=== PATIENT | female | born 1990 | race Caucasian/White ===

== ENCOUNTER 2021-06-16 07:38 | Emergency (ER) | payer BC ==
[~2021-06-16] VITALS: Ht 157.5 cm; Wt 92.1 kg
[2021-06-16 07:41] VITALS: BP 134/75
--- NOTE | 2021-06-16 07:47 | NUR ---
PATIENT SENT TO LOBBY
[2021-06-16 08:19] LABS: BASOPHILS # (AUTO) 0.1 K/uL (0.00-0.22); BASOPHILS % (AUTO) 0.7 % (0.0-2.0); EOSINOPHILS # (AUTO) 0.1 K/uL (0-0.4); EOSINOPHILS % (AUTO) 2.1 % (0.0-4.0); HEMATOCRIT 37.4 % (36-48); HEMOGLOBIN 12.6 g/dL (12.0-16.0); LYMPHOCYTES # (AUTO) 2.2 K/uL (2.5-16.5); LYMPHOCYTES % (AUTO) 31.3 % (20.5-51.1); MEAN CORPUSCULAR HEMOGLOBIN 29 pg (27-31); MEAN CORPUSCULAR HGB CONC 34 g/dL (33-37); MEAN CORPUSCULAR VOLUME 85.1 fL (80-94); MONOCYTES # (AUTO) 0.5 K/uL (0.8-1.0); MONOCYTES % (AUTO) 7.3 % (1.7-9.3); NEUTROPHILS # (AUTO) 4.2 K/uL (1.8-7.7); NEUTROPHILS % (AUTO) 58.6 % (42.2-75.2); PLATELET COUNT (AUTO) 326 K/uL (140-450); RED BLOOD CELL COUNT(AUTO) 4.39 MIL/uL (4.20-5.40); RED CELL DISTRIBUTION WIDTH 13.4 % (11.6-13.7); WHITE BLOOD COUNT (AUTO) 7.1 K/uL (4.8-10.8)
[2021-06-16 08:24] LABS: BILIRUBIN,URINE NEGATIVE (NEGATIVE); BLOOD, URINE 2+ (NEGATIVE); COLOR,URINE YELLOW (YELLOW); LEUKOCYTE ESTERASE ,URINE NEGATIVE (NEGATIVE); NITRITE, URINE NEGATIVE (NEGATIVE); UGLUCOSE NEGATIVE (NEGATIVE)
[2021-06-16 08:25] LABS: APPEARANCE,URINE CLOUDY (CLEAR)
[2021-06-16 08:34] LABS: RBC,URINE 0-5 /HPF (0-5); WBC,URINE 0-5 /HPF (0-5)
[2021-06-16 08:35] LABS: URINE AMORPHOUS URATE 1+ /HPF (None Seen)
--- NOTE | 2021-06-16 08:35 | NUR ---
PT TAKEN TO ER BED 5, GIVEN GOWN AND BLANKET
[2021-06-16 08:36] LABS: ALBUMIN 3.4 g/dL (3.4-5.0); ANION GAP 15.1 (8-16); CARBON DIOXIDE 25.7 mmol/L (21-32); CREATININE 0.7 mg/dL (0.6-1.3); POTASSIUM 3.8 mmol/L (3.5-5.1); TOTAL BILIRUBIN 0.4 mg/dL (0.0-1.0)
--- NOTE | 2021-06-16 08:48 | NUR ---
Dr. Mora at bedside evaluating patient.
--- NOTE | 2021-06-16 09:15 | NUR ---
30 y/o F BIB self c/o vaginal bleeding since this morning. Patient A&Ox4, ambulatory, states she had 5 positive tests on 06/09/21. Pt states she woke up with light spotting that is "mucus-like." Reports low back pain and abdominal pain that has since subsided. 0/10 pain at this time. Denies nausea, vomiting, diarrhea, constipation, chest pain, SOB, dysuria, fever, chills. A1. Bed locked in lowest position, side rails x 1. MEDHX: DENIES ALLERGIES: DENIES
--- NOTE | 2021-06-16 09:15 | NUR ---
Note undone in EDM - 06/16/21 at 0942 by [email or web address] 30 y/o F BIB self c/o vaginal bleeding since this morning. Patient A&Ox4, ambulatory, states she had 5 positive tests on 06/09/21. Pt states she woke up with light spotting with "mucus-like clot." Reports low back pain and abdominal pain that has since subsided. 0/10 pain at this time. Denies nausea, vomiting, diarrhea, constipation, chest pain, SOB, dysuria, fever, chills. A1. Bed locked in lowest position, side rails x 1. MEDHX: DENIES ALLERGIES: DENIES
--- NOTE | 2021-06-16 09:38 | NUR ---
Boyfriend at bedside
[2021-06-16 09:55] VITALS: BP 125/70
[2021-06-16] MEDS ORDERED: PNV91TAB8 PO (10:04)
--- NOTE | 2021-06-16 10:15 | NUR ---
Patient discharged with v/s stable. Written and verbal after care instructions given and explained. Patient alert, oriented and verbalized understanding of instructions. Ambulatory with steady gait. All questions addressed prior to discharge. ID band removed. Patient advised to follow up with PMD. Rx of Tablet given. Patient educated on indication of medication including possible reaction and side effects. Opportunity to ask questions provided and answered.
== END 2021-06-16 10:15 | disposition home or self-care (01) ==
LOC: MED 07:38
DX: O20.0 Threatened abortion (principal); Z79.899 Other long term (current) drug therapy; Z3A.01 Less than 8 weeks gestation of pregnancy
CPT/HCPCS: 36415; 76801; 80053; 81001; 81025; 85025; 86886; 86900; 86901; 99284; Q0092

== ENCOUNTER 2021-06-23 14:02 | Emergency (ER) | payer BC ==
[~2021-06-23] VITALS: Ht 160 cm; Wt 91.3 kg
[~2021-06-23 14:02] MED LIST: PNV91TAB8 PO
[2021-06-23 14:30] VITALS: BP 127/82
--- NOTE | 2021-06-23 14:35 | NUR ---
Shiela rincon in [facility] - 06/23/21 at 1437 by [email or web address] PURVI.
--- NOTE | 2021-06-23 15:08 | NUR ---
ROUTER SETTER WITH PT FOR BLOOD DRAWS.
[2021-06-23 15:30] LABS: BASOPHILS % (AUTO) 0.3 % (0.0-2.0); EOSINOPHILS # (AUTO) 0.2 K/uL (0-0.4); EOSINOPHILS % (AUTO) 1.6 % (0.0-4.0); HEMATOCRIT 37.3 % (36-48); HEMOGLOBIN 12.7 g/dL (12.0-16.0); LYMPHOCYTES # (AUTO) 2.4 K/uL (2.5-16.5); LYMPHOCYTES % (AUTO) 24.9 % (20.5-51.1); MEAN CORPUSCULAR HEMOGLOBIN 29 pg (27-31); MEAN CORPUSCULAR HGB CONC 34 g/dL (33-37); MEAN CORPUSCULAR VOLUME 84.7 fL (80-94); MONOCYTES # (AUTO) 0.8 K/uL (0.8-1.0); MONOCYTES % (AUTO) 8.6 % (1.7-9.3); NEUTROPHILS # (AUTO) 6.3 K/uL (1.8-7.7); NEUTROPHILS % (AUTO) 64.6 % (42.2-75.2); PLATELET COUNT (AUTO) 326 K/uL (140-450); RED CELL DISTRIBUTION WIDTH 13.7 % (11.6-13.7); WHITE BLOOD COUNT (AUTO) 9.8 K/uL (4.8-10.8)
--- NOTE | 2021-06-23 15:46 | NUR ---
PT RETURNED TO CHAIR A FROM XRAY VIA W/C Addendum: 06/23/21 at 1546 by [email or web address] PT TAKEN TO C
--- NOTE | 2021-06-23 15:47 | NUR ---
PT PROVIDED WITH URINE CUP AND CUP OF WATER
[2021-06-23] MEDS ORDERED: ACET-2619 PO (16:38)
--- NOTE | 2021-06-23 16:42 | NUR ---
NO NURSING INTERVENTIONS GIVEN; NO NEED FOR COMPLETE ASSESSMENT
[2021-06-23 20:29] LABS: BILIRUBIN,URINE NEGATIVE (NEGATIVE); BLOOD, URINE 3+ (NEGATIVE); COLOR,URINE YELLOW (YELLOW); LEUKOCYTE ESTERASE ,URINE NEGATIVE (NEGATIVE); NITRITE, URINE NEGATIVE (NEGATIVE); UGLUCOSE NEGATIVE (NEGATIVE)
[2021-06-23 20:30] LABS: APPEARANCE,URINE CLEAR (CLEAR)
[2021-06-23 20:43] LABS: RBC,URINE TOO NUMEROUS TO COUN /HPF (0-5); WBC,URINE 0-5 /HPF (0-5)
== END 2021-06-23 16:42 | disposition home or self-care (01) ==
LOC: MED 14:02
DX: O03.9 Complete or unspecified spontaneous abortion without complication (principal); Z79.899 Other long term (current) drug therapy
CPT/HCPCS: 36415; 76815; 81001; 84702; 85025; 86900; 86901; 99284; Q0092

== ENCOUNTER 2021-07-08 15:43 | Emergency (ER) | payer BC ==
[~2021-07-08] VITALS: Ht 160 cm; Wt 91.6 kg
[~2021-07-08 15:43] MED LIST changes: +ACET-2619 PO
[2021-07-08 16:41] VITALS: BP 136/89
[2021-07-08 17:11] LABS: BASOPHILS % (AUTO) 0.2 % (0.0-2.0); HEMATOCRIT 38.2 % (36-48); HEMOGLOBIN 12.9 g/dL (12.0-16.0); LYMPHOCYTES # (AUTO) 1.1 K/uL (2.5-16.5); LYMPHOCYTES % (AUTO) 13.6 % (20.5-51.1); MEAN CORPUSCULAR HEMOGLOBIN 29 pg (27-31); MEAN CORPUSCULAR HGB CONC 34 g/dL (33-37); MEAN CORPUSCULAR VOLUME 84.3 fL (80-94); MONOCYTES # (AUTO) 0.5 K/uL (0.8-1.0); MONOCYTES % (AUTO) 6.4 % (1.7-9.3); NEUTROPHILS # (AUTO) 6.5 K/uL (1.8-7.7); NEUTROPHILS % (AUTO) 79.8 % (42.2-75.2); PLATELET COUNT (AUTO) 349 K/uL (140-450); RED BLOOD CELL COUNT(AUTO) 4.53 MIL/uL (4.20-5.40); RED CELL DISTRIBUTION WIDTH 13.4 % (11.6-13.7); WHITE BLOOD COUNT (AUTO) 8.1 K/uL (4.8-10.8)
[2021-07-08 17:27] LABS: ALBUMIN 3.7 g/dL (3.4-5.0); ANION GAP 14.8 (8-16); CARBON DIOXIDE 24.7 mmol/L (21-32); CREATININE 0.6 mg/dL (0.6-1.3); POTASSIUM 3.5 mmol/L (3.5-5.1); TOTAL BILIRUBIN 0.5 mg/dL (0.0-1.0)
[2021-07-08] MEDS ORDERED: NAPR-54 PO (18:46)
[2021-07-08] MEDS ORDERED: MEDR10TA PO (18:46)
[2021-07-08 19:30] VITALS: BP 136/89
--- NOTE | 2021-07-08 19:30 | NUR ---
Patient left without d/c paperwork. Patient discharged with v/s stable. Ambulatory with steady gait. All questions addressed prior to discharge. ID band removed. Patient advised to follow up with PMD. Rx of PROVERA AND NAPROSYN given. Patient educated on indication of medication including possible reaction and side effects. Opportunity to ask questions provided and answered.
== END 2021-07-08 19:30 | disposition home or self-care (01) ==
LOC: MED 15:43
DX: N93.9 Abnormal uterine and vaginal bleeding, unspecified (principal); Z79.899 Other long term (current) drug therapy
CPT/HCPCS: 36415; 76856; 80053; 81002; 81025; 84702; 85025; 99284

== ENCOUNTER 2023-04-27 12:26 | Emergency (ER) | payer SELFPAY ==
[~2023-04-27] VITALS: Ht 157.5 cm; Wt 90.7 kg
[~2023-04-27 12:26] MED LIST changes: +MEDR10TA PO; +NAPR-54 PO
[2023-04-27 12:45] VITALS: BP 134/101; PULSE 67; RESP 18; TEMP 97.5; O2SAT 96
[2023-04-27] MEDS ORDERED: TETRACAINE HCL/PF 0.5% OPTH 4 ML BTL OP ONE (14:45)
[2023-04-27] MEDS ORDERED: FLUORESCEIN OPTH STRIP 1 MG OP ONE (14:45)
[2023-04-27] MEDS ORDERED: CYCL-711 PO (16:00)
[2023-04-27] MEDS ORDERED: ACET-2619 PO (16:00)
[2023-04-27] MEDS ORDERED: IBUP-2213 PO (16:00)
[2023-04-27 16:13] VITALS: BP 125/78; PULSE 68; RESP 16; TEMP 98; O2SAT 99
== END 2023-04-27 16:13 | disposition home or self-care (01) ==
LOC: MED 12:26
DX: S16.1XXA Strain of muscle, fascia and tendon at neck level, initial encounter (principal); S00.12XA Contusion of left eyelid and periocular area, initial encounter; Z79.899 Other long term (current) drug therapy; Z79.1 Long term (current) use of non-steroidal anti-inflammatories (NSAID); Y08.89XA Assault by other specified means, initial encounter; Y93.89 Activity, other specified; Y92.89 Other specified places as the place of occurrence of the external cause; Y99.8 Other external cause status
CPT/HCPCS: 72050; 99284